=== PATIENT | female | born 1955 | race Caucasian/White ===

== ENCOUNTER 2016-10-02 13:13 | Emergency (ER) | payer OTHER ==
[2016-10-02 13:20] VITALS: BP 132/79; PULSE 88; TEMP 98; BMI 35.4
[2016-10-02] MEDS ORDERED: IBUPROFEN 400 MG TABLET (FP) PO ONE (13:22)
--- NOTE | 2016-10-02 13:22 | PDOC ---
History of Present Illness - General Chief Complaint: Pain, Acute Stated Complaint: LEFT FOOT/ANKLE PAIN Time Seen by Provider: 10/02/16 13:14 History Source: Patient Exam Limitations: No Limitations - History of Present Illness Initial Comments: 10/02/16 13:19 The patient is a 60-year-old female, with a significant past medical history of morbid obesity, who presents to the emergency department with 3 days of left posterior foot pain. The patient states that she usually wears "flats" but that approximately 5 days ago she started wearing "shoes that, high." After a night of wearing such shoes, she woke up with pain in the left, lateral posterior foot. She proceeded to wear similar shoes, and the pain continued. It is exacerbated by ambulation and palpation. She denies blunt trauma or any other injury of the foot or ankle, including twists. She denies rash at the site. She denies fever, chills, sweats. She denies lower extremity swelling either at the site, or in the ankle or calf. Past History - Past Medical History Allergies/Adverse Reactions: Allergies Allergy/AdvReac Type Severity Reaction Status Date / Time No Known Allergies Allergy Verified 10/02/16 13:14 Home Medications: Ambulatory Orders Levothyroxine [Synthroid -] 50 mcg PO DAILY 10/02/16 Rosuvastatin Calcium [Crestor] 20 mg PO DAILY 10/02/16 Review of Systems - Review of Systems Comments:: 10/02/16 13:20 CONSTITUTIONAL: Absent: fever, chills, fatigue EYES: Absent: visual changes ENT: Absent: ear pain, sore throat CARDIOVASCULAR: Absent: chest pain, palpitations, loss of consciousness RESPIRATORY: Absent: cough, SOB GI: Absent: abdominal pain, nausea, vomiting, constipation, diarrhea GENITOURINARY: Absent: dysuria, frequency, hematuria MUSKULOSKELETAL: Present: see HPI Absent: back pain SKIN: Absent: rash NEURO: Absent: headache, dizziness *Physical Exam - Physical Exam Comments: 10/02/16 13:21 GENERAL: Well-appearing, well-nourished. No apparent distress. HEENT: Normocephalic, atraumatic. PERRL, EOM intact. CARDIOVASCULAR: Normal S1, S2. Regular rate and rhythm. PULMONARY: Clear to auscultation bilaterally. ABDOMEN: Soft, non-distended, non-tender. EXTREMITIES: There is tender to palpation in the left posterior foot, in the soft tissues just inferior to the lateral malleolus. There is no swelling. There is no bony tenderness. Normal ROM in all four extremities. No gross deformities. SKIN: Warm, dry. No rash NEUROLOGICAL: No focal neurological deficits. Medical Decision Making - Medical Decision Making 10/02/16 13:22 The patient is well-appearing and in no acute distress Will obtain plain x-rays to rule out stress fracture 10/02/16 13:49 X-ray emergency Department interpretation: No evidence of fracture Clinical impression: Ankle contusion Ankle sprain I discussed the physical exam findings, ancillary test results and final diagnoses with the patient. I answered all of the patient's questions. The patient was satisfied with the care received and felt comfortable with the discharge plan and treatment plan. The patient will call their primary care physician within 24 hours to arrange follow-up and will return to the Emergency Department with any new, persistent or worsening symptoms. *DC/Admit/Observation/Transfer Diagnosis at time of Disposition: Ankle sprain, Ankle pain, left - Discharge Dispostion Disposition: HOME Condition at time of disposition: Improved - Referrals Referrals: Moshe Boyd MD [Staff Physician] - 7 days - Patient Instructions Printed Discharge Instructions: DI for Ankle Sprain Additional Instructions: Return to the emergency department immediately with ANY new, persistent or worsening symptoms. You MUST call and follow up with your doctor tomorrow. Please make sure your doctor reviews the results of your emergency department evaluation. Take 400mg of motrin three times per day for 5 days (with food).
== END 2016-10-02 14:05 | disposition home or self-care (01) ==
LOC: FER 13:13
DX: S93.402A Sprain of unspecified ligament of left ankle, initial encounter (principal); X58.XXXA Exposure to other specified factors, initial encounter; Y93.9 Activity, unspecified; Y92.9 Unspecified place or not applicable; E66.01 Morbid (severe) obesity due to excess calories; Z68.35 Body mass index [BMI] 35.0-35.9, adult
CPT/HCPCS: 73610-TC-LT; 99282-25

== ENCOUNTER 2021-11-27 07:23 | Emergency (ER) | payer OTHER ==
[2021-11-27 07:34] VITALS: TEMP 99; BMI 40.7
[2021-11-27] MEDS ORDERED: FAMOTIDINE 20 MG/50 ML IVPB 20 MG in PREMIX 50 IVPB ONE (07:44)
[2021-11-27] MEDS ORDERED: MAG HYDROX/AL HYDROX/SIMETH -MYLANTA- ORAL SUSPENSION PO ONE (07:44)
[2021-11-27] MEDS ORDERED: FAMOTIDINE 20 MG/50 ML IVPB 20 MG/50 ML MG IVPB ONE (07:57)
[2021-11-27] MEDS ORDERED: MAG HYDROX/AL HYDROX/SIMETH 30 ML UNIT-DOSE CUP ONE (07:57)
[2021-11-27 08:40] LABS: HEMATOCRIT 40.6 % (32.4-45.2); HEMOGLOBIN 13.7 G/dL (10.7-15.3); MCH 29.5 pg (25.7-33.7); MCHC 33.8 g/dl (32.0-36.0); MEAN CELL VOLUME 87.3 fl (80-96); MEAN PLT VOLUME 7.9 fl (7.5-11.1); RBC 4.65 10^6/uL (3.60-5.2); RDW 14.9 % (11.6-15.6); WHITE BLOOD COUNT 9.9 10^3/uL (4.0-10.8)
[2021-11-27 08:44] LABS: ALBUMIN 3.8 g/dl (3.4-5.0); BILIRUBIN,TOTAL 0.6 mg/dl (0.2-1); CALCIUM 8.9 mg/dl (8.5-10); CREATININE 1.2 mg/dl (0.55-1.3); TOT PROT 7.2 g/dl (6.4-8.2)
[2021-11-27 10:07] LABS: EPITHELIAL CELLS FEW /hpf
[2021-11-27 10:09] LABS: ADD RBC MORPHOLOGY YES; PLATELET ESTIMATE ADEQUATE
[2021-11-27 10:11] LABS: ANISOCYTOSIS 1+
[2021-11-27 11:45] VITALS: BP 110/75; PULSE 80
== END 2021-11-27 11:43 | disposition home or self-care (01) ==
LOC: FER 07:23
PROC: 3E033GC Introduction of Other Therapeutic Substance into Peripheral Vein, Percutaneous Approach (ICD-10-PCS; principal; 2021-11-27)
DX: R10.13 Epigastric pain (principal)
CPT/HCPCS: 36415; 71046-TC-FY; 76705-TC; 80053; 81003; 81015; 83690; 84484; 85025; 93005; 99285-25